=== PATIENT | female | born 1955 | race Caucasian/White ===

== ENCOUNTER 2018-03-26 06:39 | Inpatient (IN) ==
[2018-03-26] MEDS ORDERED: Bupivacaine 0.5% Inj 50 ML MDV Vial ONE (06:44)
[2018-03-26] MEDS ORDERED: Protamine Sulfate Inj 50 MG/5 ML Vial ONE (06:44)
[2018-03-26] MEDS ORDERED: Heparin 10,000 UNITS/10 ML Vial (for IV use) ONE (06:44)
[2018-03-26] MEDS ORDERED: Thrombin Topical Soln 20,000 UNIT Vial TOPICAL ONE ×4 (06:45→12:51)
[2018-03-26] MEDS ORDERED: Heparin/NS PF Inj 500 ML ONE (06:45)
[2018-03-26] MEDS ORDERED: Chlorhexidine Gluconate 2% 1 Pack (2 Cloths) TOPICAL ONE (07:15)
[2018-03-26] MEDS ORDERED: Sodium Chlor 0.9% Inj 500 ML IV.CONT ONE ×2 (07:15→08:04)
[2018-03-26] MEDS ORDERED: Metoprolol Tartrate 25 MG Tablet PO ONE (07:15)
[2018-03-26] MEDS ORDERED: Gabapentin 400 MG Capsule ONE (07:18)
[2018-03-26] MEDS ORDERED: Acetaminophen 325 MG Tablet ONE (07:18)
--- NOTE | 2018-03-26 07:24 | P.HPVS ---
History of Present Illness Chief Complaint: B LE rest pain History of Present Illness: 62 yo female with prior aortic reconstruction for occlusive disease who presents for extra-anatomic bypass for B LE rest pain. No tissue loss, no motor dysfunction. Notes that legs hurt every night. Other than anxiety about surgery, has been feeling well. No changes in her health that would preclude OR. - Inpatient Certification If this patient has been admitted as an Inpatient: I certify that the inpatient services were ordered in accordance with Medicare regulations governing the order. This includes certification that hospital inpatient services are reasonable and necessary and in the case of services not specified as inpatient-only under 42 CFR 419.22(n), that they are appropriately provided as inpatient services in accordance to with the 2-midnight benchmark under 43 CFR 412.3(e) Estimated Total Length of Stay (Days): 5 Plans for Post Hospital Care: Home Review of Systems All other systems reviewed negative except as stated in HPI PMFSH - History History Provided By: Patient - Medical History Medical History: Medical History (Last Reviewed 03/26/18 @ 07:22 by Matthias Robbins MD) Anxiety Back pain Depression Glaucoma History of bronchitis History of tuberculosis Hypertension Joint pain Myocardial infarction Neck pain Pinched nerve Sciatica Wears glasses - Surgical History Surgical History: Surgical History (Last Reviewed 03/26/18 @ 07:22 by Matthias Robbins MD) History of cardiac cath History of heart artery stent - Tobacco History Tobacco Use In Past 30 Days: Yes Smoking Status: Current every day smoker Tobacco Type: Cigarettes - Alcohol History How Often Do You Have a Drink Containing Alcohol: Monthly or less - Substance Use History Substance History: No History of Abuse Medications and Allergies Active Medications: Active Medications Lactated Ringer's (Lr 1000 Ml Inj) 1,000 mls @ 30 mls/hr IV.CONT .Q24H ONE Stop: 03/27/18 07:14 Sodium Chloride (Ns Inj) 500 mls @ 30 mls/hr IV.CONT .[id number] ONE Stop: 03/26/18 23:54 Allergies Allergy/AdvReac Type Severity Reaction Status Date / Time atorvastatin [From Lipitor] Allergy Severe LEG CRAMPS Verified 03/26/18 07:21 isosorbide Allergy Severe Chest Pain Verified 03/26/18 07:21 levofloxacin Allergy Severe RASH Verified 03/26/18 07:21 nitrous oxide Allergy Severe Anaphylaxis Verified 03/22/18 13:50 penicillin G Allergy Severe Anaphylaxis Verified 03/26/18 07:21 red dye Allergy Severe Edema, Verified 03/22/18 13:50 Localized clopidogrel [From Plavix] AdvReac Severe DOES NOT Verified 03/22/18 13:50 WORK PER PATIENT Home Medications Medication Instructions Recorded Confirmed Type Lacto.acidophilus-Bif.animalis 1 cap PO DAILY 03/19/18 03/22/18 History [Daily Probiotic] alprazolam 0.25 mg PO TID PRN 03/19/18 03/22/18 History cholecalciferol (vitamin D3) 1,000 unit PO DAILY 03/19/18 03/22/18 History [Vitamin D3] duloxetine 30 mg PO DAILY 03/19/18 03/22/18 History gabapentin 300 mg PO BID 03/19/18 03/22/18 History metoprolol tartrate 25 mg PO BID 03/19/18 03/22/18 History prasugrel [Effient] 10 mg PO DAILY 03/19/18 03/22/18 History Physical Exam Vital Signs / I&O: Intake & Output 03/25/18 03/26/18 03/26/18 18:59 06:59 18:59 Weight 52.3 kg Neuro: alert, [place], slightly anxious HEENT: NC/AT; anicteric Neck: no JVD Heart: reg rate Lungs: clear Abdomen: midline incision healed Vascular: no palpable femoral, pedal pulses Extremities: B groins without erythema Hct 46 plt 280 INR 1.0 cr 0.85 Caprini VTE Risk Assessment Caprini VTE Risk Assessment: No/Low Risk (score <= 1) (intraop heparin) Caprini Risk Assessment Model: Point Value = 1 Point Value = 2 Point Value = 3 Point Value = 5 Age 41-60 Minor surgery BMI > 25 kg/m2 Swollen legs Varicose veins or History of unexplained or recurrent spontaneous Oral contraceptives or hormone replacement Sepsis (< 1 month) Serious lung disease, including pneumonia (< 1 month) Abnormal pulmonary function Acute myocardial infarction Congestive heart failure (< 1 month) History of inflammatory bowel disease Medical patient at bed rest Age 61-74 Arthroscopic surgery Major open surgery (> 45 min) Laparoscopic surgery (> 45 min) Malignancy Confined to bed (> 72 hours) Immobilizing plaster cast Central venous access Age >= 75 History of VTE Family history of VTE Factor V Leiden Prothrombin [id number] Lupus anticoagulant Anticardiolipin antibodies Elevated serum homocysteine Heparin-induced thrombocytopenia Other congenital or acquired thrombophilia Stroke (< 1 month) Elective arthroplasty Hip, pelvis, or leg fracture Acute spinal cord injury (< 1 month) Prophylaxis Regimen: Total Risk Factor Score Risk Level Prophylaxis Regimen 0-1 Low Early ambulation 2 Moderate Order ONE of the following: *Sequential Compression Device (SCD) *Heparin 5000 units SQ BID 3-4 Higher Order ONE of the following medications: *Heparin 5000 units SQ TID *Enoxaparin/Lovenox 40 mg SQ daily (WT < 150 kg, CrCl > 30 mL/min) *Enoxaparin/Lovenox 30 mg SQ daily (WT < 150 kg, CrCl > 10-29 mL/min) *Enoxaparin/Lovenox 30 mg SQ BID (WT < 150 kg, CrCl > 30 mL/min) AND/OR *Sequential Compression Device (SCD) 5 or more Highest Order ONE of the following medications: *Heparin 5000 units SQ TID (Preferred with Epidurals) *Enoxaparin/Lovenox 40 mg SQ daily (WT < 150 kg, CrCl > 30 mL/min) *Enoxaparin/Lovenox 30 mg SQ daily (WT < 150 kg, CrCl > 10-29 mL/min) *Enoxaparin/Lovenox 30 mg SQ BID (WT < 150 kg, CrCl > 30 mL/min) AND *Sequential Compression Device (SCD) Assessment and Plan - Assessment (1) Terminal aortic occlusion Code(s): I74.09 - Other arterial embolism and thrombosis of abdominal aorta Status: Acute - Plan plan for R ax-fem-fem pt understands risks of surgery To OR.
[2018-03-26] MEDS ORDERED: Glycopyrrolate Inj 1 MG/5 ML Syringe IV.PUSH ONE (08:04)
[2018-03-26] MEDS ORDERED: Phenylephrine/NS 1000 MCG/10ML Syringe IV.PUSH ONE (08:04)
[2018-03-26] MEDS ORDERED: Normosol-R pH 7.4 Inj 4,000 ML IV.CONT ONE (08:04)
[2018-03-26] MEDS ORDERED: Sodium Chlor 0.9% Inj 250 ML IV.CONT ONE (08:04)
[2018-03-26] MEDS ORDERED: Neostigmine Inj 5 MG/5 ML Syringe IV.PUSH ONE (08:04)
[2018-03-26] MEDS ORDERED: Lidocaine PF 1% Inj 5 ML Syringe OTHER ONE (08:04)
[2018-03-26 12:36] LABS: Hematocrit 27.8 % (35.0-46.0); Hemoglobin 9.5 gm/dL (11.6-15.3); Mean Corpuscular HGB Conc 34.3 % (32.0-36.0); Mean Corpuscular Hemoglobin 31.5 pg (27.0-34.0); Mean Corpuscular Volume 91.9 fL (80.0-100.0); Mean Platelet Volume 8.8 fL (7.0-11.0); Platelet Count 248 th/mm3 (150-450); Red Blood Count 3.02 mil/mm3 (4.00-5.30); Red Cell Distribution Width 14.4 % (11.6-17.2); White Blood Count 11.1 th/mm3 (4.0-11.0)
[2018-03-26] MEDS ORDERED: Bisacodyl 10 MG Supp RECTAL PRN (13:34)
--- NOTE | 2018-03-26 13:34 | P.OP ---
- Preoperative Diagnosis (1) Terminal aortic occlusion - Postoperative Diagnosis (1) Terminal aortic occlusion Date of procedure: 03/26/18 Procedure: 1. R ax-fem, fem-fem (8mm PTFE) 2. R PFA TEA with bovine pericardial patch angioplasty 3. L PFA TEA with bovine pericardial patch angioplasty 4. R fem-BK pop with 6mm PTFE Implants: 8mm PTFE ax-fem-fem 6mm PTFE R fem-BK pop bovine pericardial patches x 2 B groins Anesthesia: GETA Surgeon: Matthias Robbins MD Anime Artist: Matthias Guillen Estimated blood loss (mL): 700 IV fluids (mL): 4,200 Urine output (mL): 400 Pathology: none sent Operation and Findings: severe PAD + R PT and DP signals + L DP signal
[2018-03-26] MEDS ORDERED: fentaNYL Citrate Inj 100 MCG/2 ML Ampul ONE (14:02)
[2018-03-26] MEDS: Morphine Inj 4 MG/ML Vial IV.PUSH PRN ×4 (14:17→20:43)
[2018-03-26 14:54] LABS: Hematocrit 28.3 % (35.0-46.0); Hemoglobin 10.1 gm/dL (11.6-15.3); Mean Corpuscular HGB Conc 35.7 % (32.0-36.0); Mean Corpuscular Hemoglobin 33.3 pg (27.0-34.0); Mean Corpuscular Volume 93.4 fL (80.0-100.0); Mean Platelet Volume 8.8 fL (7.0-11.0); Platelet Count 250 th/mm3 (150-450); Red Blood Count 3.03 mil/mm3 (4.00-5.30); Red Cell Distribution Width 14.5 % (11.6-17.2); White Blood Count 17.4 th/mm3 (4.0-11.0)
[2018-03-26] MEDS ORDERED: Phenylephrine Inj 40 MG in Dextrose 5% in Water Inj 496 ML IV.CONT PRN ×2 (15:00)
--- NOTE | 2018-03-26 15:23 | MP ---
cc: Matthias Robbins MD DATE OF OPERATION: 03/26/2018 PREOPERATIVE DIAGNOSIS: Terminal aortic occlusion, bilateral lower extremity rest pain. POSTOPERATIVE DIAGNOSIS: Terminal aortic occlusion, bilateral lower extremity rest pain. PROCEDURE PERFORMED: 1. Right axillary-femoral and femoral-femoral bypass with 8 mm ringed PTFE. 2. Right profunda endarterectomy and patch angioplasty with bovine pericardium. 3. Left profunda endarterectomy and patch angioplasty with bovine pericardium. 4. Right femoral to below-knee popliteal artery bypass with 6 mm PTFE. ATTENDING SURGEON: Matthias Robbins MD. ANESTHESIA: General. INDICATIONS FOR PROCEDURE: This patient is a 62-year-old lady with terminal aortic occlusion and previous open aortic procedure. She was taken to the operating room for extra-anatomic bypasses, as I do not think she is a candidate for a thoraco-bifemoral due to her underlying pulmonary dysfunction. DESCRIPTION OF PROCEDURE: Informed consent was obtained. The patient was taken to the operating room and placed supine on the operating table. An appropriate timeout was taken to ensure the patient's identity, the operative site and planned procedure. A gram of vancomycin was initiated prior to skin incision and will be discontinued after single preoperative dose. Vancomycin was chosen because of the patient's PENICILLIN ALLERGY. Everyone in the room agreed and we proceeded. She was prepped from the chin to the toes. An incision was made in both the patient's groins and carried down through subcutaneous tissue with electrocautery. The femoral artery, superficial femoral artery and profunda femoris were all dissected free. On the right hand side, the profunda femoris was about 2 mm in diameter. A right subclavicular incision was then made, carried down through subcutaneous tissue with electrocautery. The pectoralis major muscles were divided and the pectoralis minor muscles were retracted laterally. The axillary artery was identified and encircled with a vessel loop. A tunnel was then created between the axillary incision and the right groin incision with a counter incision being made. An 8 mm ringed PTFE was placed through this and the counter incision was closed with 3-0 Polysorb and 4-0 Monocryl. A tunnel was then created in the subfascial plane between the 2 femoral exposure sites and an 8 mm ringed PTFE was placed through this. The patient was then heparinized and throughout the remainder of the case, ACT was kept greater than 250 with additional bolus of heparin. Proximal and distal control of axillary artery was obtained with profunda clamps and a longitudinal arteriotomy was made with an 11 blade, extended with [place] scissors. The 8 mm ringed PTFE was spatulated and sewn end-to-side to the axillary artery with running 5-0 Prolene suture. At completion, it was flushed and noted to be hemostatic. A [place] Sof-Rol was placed on this in the groin. The common femoral, profunda, and SFA were all clamped and a longitudinal arteriotomy was made with an 11 blade, extended with [place] scissors. The profunda was endarterectomized. A bovine pericardial patch was brought up onto the field and sewn on starting from the common femoral including the profunda and this was sewn on with running 6-0 Prolene suture. The patch was then incised with an 11 blade, extended with [place] scissors. The axillofemoral graft was cut to the appropriate length, spatulated, and sewn end-to-side to the patch with running 5-0 Prolene suture. At the completion, it was flushed and noted to be hemostatic. There was nice Doppler signal in the profunda. The clamp was then reapplied and the graft was opened longitudinally. An 8 mm fem-fem was then sewn end-to-side with running 5-0 Prolene. On the left hand side, common femoral, profunda and SFA control were obtained with profunda clamps and a longitudinal arteriotomy was then made with an 11 blade and extended with [place] scissors. The profunda and common femoral artery were endarterectomized and bovine pericardial patch was sewn upon sewn on the common femoral and profunda using running 6-0 Prolene suture. The patch was incised with an 11 blade, extended with [place] scissors. The fem-fem was cut to an appropriate length, spatulated, and sewn end-to-side to the patch with running 5-0 Prolene suture. The patient was felt to be hemostatic. All the clamps were released. There was nice Doppler signal in both profundus. No Doppler signal in the right foot and a reasonable Doppler signal in the left foot. An incision was made in the right below-knee calf, carried down through subcutaneous tissue with electrocautery. The muscle was divided and retracted posteriorly. The popliteal vein was identified and retracted posteriorly and the below-knee popliteal artery was identified, encircled with vessel loop. A tunnel was then created between these two and 6 mm PTFE was placed in the tunnel. The proximal control of the ax-fem was obtained with profunda clamps and a longitudinal arteriotomy was made with an 11 blade, extended with [place] scissors. A 6 mm tunneled to femoral-BK pop bypass was sewn end-to-side with running 5-0 Prolene suture. At the completion, it was flushed and noted to be hemostatic. The below-knee popliteal artery was clamped proximally and distally with profunda clamps and the longitudinal arteriotomy was made with 11 blade, extended with [place] scissors. The graft was cut to appropriate length, spatulated, and sewn end-to-side to the below-knee popliteal artery with running 6-0 Prolene suture. At the completion, it was flushed and noted to be hemostatic. There was an excellent Doppler signal in the right foot. The wounds were all irrigated and made hemostatic. The heparin was reversed with protamine. The wounds were infiltrated with Marcaine, vancomycin powder. The wounds were all closed with 2-0 Polysorb, 3-0 Polysorb and 4-0 Monocryl. Sponge and needle counts were correct at the end of the case. I was present, scrubbed, and performed the entire procedure. MD CODEY Daniels/werner , 02:46 PM , 03:00 PM
[2018-03-26 15:29] LABS: Anion Gap 9 meq/L (5-15); Blood Urea Nitrogen 11 mg/dL (7-18); Calcium 6.6 mg/dL (8.5-10.1); Carbon Dioxide 26.2 meq/L (21.0-32.0); Chloride 108 meq/L (98-107); Glomerular Filtration Rate Greater Than 89 mL/min (>89); Glucose,Random 159 mg/dL (74-106); Potassium 3.9 meq/L (3.5-5.1); Sodium 143 meq/L (136-145)
[2018-03-26 15:50] LABS: Albumin 2.5 g/dL (3.4-5.0); Calcium-Albumin Corrected 7.8 mg/dL (8.5-10.1)
--- NOTE | 2018-03-26 16:15 | P.CONCC ---
History of Present Illness Service: CVICU Consult date: 03/26/18 Requesting Physician: Matthias Robbisn Reason for Consult: Post-operative care s/p extensive vascular bypasses Primary Care Provider: Keo Kim DO Chief Complaint: None History of Present Illness: 62yF with PVD, lower extremity claudication, and rest pain who was brought to CVICU POD #0 s/p right axillary-femoral and femoral-femoral bypass with PTFE graft, bilateral profunda endarterectomies and patch angioplasty with bovine pericardium, and right femoral to below knee popliteal artery bypass with PTFE graft. The patient had an EBL of 700 cc intra-operatively, was successfully extubated following the procedure, and arrived to CVICU in no acute distress. Her only current complaint is feeling a foreign body sensation in her left eye. Denies abdominal pain, back pain, or lower extremity numbness/ pain. Review of Systems All other systems reviewed negative except as stated in HPI Constitutional: Denies fever(s) Eyes: Reports dry eyes Ears, Nose, Mouth, and Throat: Denies nasal congestion Cardiovascular: Denies chest pain Respiratory: Denies cough Gastrointestinal: Denies abdominal pain Genitourinary: Denies painful urination Musculoskeletal: Denies back pain Neurologic: Denies confusion Psychiatric: Denies confusion PMFSH - History History Provided By: Patient - Medical History Medical History: Medical History (Last Reviewed 03/26/18 @ 15:11 by Alanna Jett DO) Anxiety Back pain Depression Glaucoma History of bronchitis History of tuberculosis Hypertension Joint pain Myocardial infarction Neck pain Pinched nerve Sciatica Wears glasses - Surgical History Surgical History: Surgical History (Last Reviewed 03/26/18 @ 15:11 by Alanna Jett DO) History of cardiac cath History of heart artery stent - Social History I have reviewed the patient's Social History: Yes - Tobacco History Second Hand Smoke Exposure: Yes Tobacco Use In Past 30 Days: Yes Smoking Status: Current every day smoker Tobacco Type: Cigarettes - Alcohol History How Often Do You Have a Drink Containing Alcohol: Monthly or less - Substance Use History Substance History: No History of Abuse - Travel History Recent Travel in the [place] Within the Last 8 Weeks: No Recent Travel Out of the Country Within the Last 8 Weeks: No Medications and Allergies Active Medications: Active Medications Al Hydroxide/Mg Hydroxide (Milk Of Magnesia Liq) 30 ml PO Q12H PRN PRN Reason: Mild Constipation Alprazolam (Xanax) 0.25 mg PO TID PRN PRN Reason: Anxiety Artificial Tears (Tears Naturale Opth Drops) 1 drop EACH EYE Q4H PRN PRN Reason: EYE PAIN Aspirin (Aspirin Chew) 81 mg PO DAILY [facility] Bisacodyl (Dulcolax Supp) 10 mg RECTAL DAILY PRN PRN Reason: SEVERE CONSITIPATION Clopidogrel Bisulfate (Plavix) 75 mg PO DAILY [facility] Duloxetine HCl (Cymbalta) 30 mg PO DAILY [facility] Enoxaparin Sodium (Lovenox Inj) 30 mg SQ Q24H [facility] Famotidine (Pepcid) 20 mg PO BID [facility] Gabapentin (Neurontin) 300 mg PO BID [facility] Hydromorphone HCl (Dilaudid) 2 mg PO Q4H PRN PRN Reason: PAIN SCALE 6 TO 10 Hydroxyzine HCl (Atarax) 25 mg PO Q8H PRN PRN Reason: ITCHING Lactated Ringer's (Lr 1000 Ml Inj) 1,000 mls @ 30 mls/hr IV.CONT .Q24H ONE Stop: 03/27/18 07:14 Last Admin: 03/26/18 07:31 Dose: 30 mls/hr Sodium Chloride (Ns Inj) 500 mls @ 30 mls/hr IV.CONT .[id number] ONE Stop: 03/26/18 23:54 Last Admin: 03/26/18 07:31 Dose: Not Given Lactated Ringer's (Lr 1000 Ml Inj) 1,000 mls @ 63 mls/hr IV.CONT .[id number] [facility] Last Admin: 03/26/18 14:50 Dose: 63 mls/hr Phenylephrine HCl 40 mg/ (Dextrose) 500 mls @ 26.25 mls/hr IV.CONT TITRATE PRN ; Protocol PRN Reason: Per Protocol Lactobacillus Acidophilus (Lactinex) 1 tab PO DAILY [facility] Lactulose (Lactulose Liq) 30 ml PO DAILY PRN PRN Reason: SEVERE CONSITIPATION Metoprolol Tartrate (Lopressor) 25 mg PO BID [facility] Morphine Sulfate (Morphine Inj) 2 mg IV.PUSH Q1H PRN PRN Reason: BREAKTHROUGH PAIN Last Admin: 03/26/18 14:17 Dose: 2 mg Oxycodone HCl (Roxicodone) 5 mg PO Q4H PRN PRN Reason: PAIN SCALE 1 TO 5 Senna/Docusate Sodium (Lissette-Colace) 1 tab PO BID [facility] Sennosides (Senokot) 17.2 mg PO Q12H PRN PRN Reason: Moderate Constipation Terbutaline Sulfate (Brethine Inj) 1 mg SQ UNSCH PRN PRN Reason: For Extravasation Vitamin D (Vitamin D3) 1,000 unit PO DAILY [facility] Allergies Allergy/AdvReac Type Severity Reaction Status Date / Time atorvastatin [From Lipitor] Allergy Severe LEG CRAMPS Verified 03/26/18 07:21 isosorbide Allergy Severe Chest Pain Verified 03/26/18 07:21 levofloxacin Allergy Severe RASH Verified 03/26/18 07:21 nitrous oxide Allergy Severe Anaphylaxis Verified 03/22/18 13:50 penicillin G Allergy Severe Anaphylaxis Verified 03/26/18 07:21 red dye Allergy Severe Edema, Verified 03/22/18 13:50 Localized clopidogrel [From Plavix] AdvReac Severe DOES NOT Verified 03/22/18 13:50 WORK PER PATIENT Home Medications Medication Instructions Recorded Confirmed Type Lacto.acidophilus-Bif.animalis 1 cap PO DAILY 03/19/18 03/26/18 History [Daily Probiotic] alprazolam 0.25 mg PO TID PRN 03/19/18 03/26/18 History cholecalciferol (vitamin D3) 1,000 unit PO DAILY 03/19/18 03/26/18 History [Vitamin D3] duloxetine 30 mg PO DAILY 03/19/18 03/26/18 History gabapentin 300 mg PO BID 03/19/18 03/26/18 History metoprolol tartrate 25 mg PO BID 03/19/18 03/26/18 History prasugrel [Effient] 10 mg PO DAILY 03/19/18 03/26/18 History Physical Exam Vital signs: Vital Signs 03/26/18 07:24 Temperature 97.4 F L Pulse Rate 59 L Respiratory Rate 20 Blood Pressure 191/76 H Pulse Oximetry 100 Intake & Output 03/25/18 03/26/18 03/26/18 18:59 06:59 18:59 Weight 52.3 kg Other: Weight On Admission 52.3 kg Narrative: GEN: Awake and alert, no acute distress HEENT: PERRL, no conjunctival injection or ocular discharge, eyelids everted and no foreign bodies noted, mild chemosis NECK: Trachea midline CARDIO: Regular rate and rhythm PULM: Clear to auscultation bilaterally ABD/GI: Soft, non-tender in all quadrants EXT/MSK: No palpable foot pulses bilaterally; strong monophasic Doppler signals to right DP and PT, no Doppler signals to left DP/PT (RN reports this was also the case pre-operatively), sensation intact to bilateral lower extremities, able to move all digits SKIN: Warm, pink; wound vac present to bilateral groins, incisions to right upper and mid chest are clean and dry NEURO: Awake and alert, conversant, answers questions appropriately, moves all extremities PSYCH: Calm, no current agitation - Urinary Catheter Management Indwelling Temp Sensing Catheter Cath placed during this visit: yes Reason for continuing: Hourly intake/output Insertion date: 03/26/18 Insertion time: 08:20 Assessment and Plan - Assessment and Plan Plan: 62yF presenting s/p right axillary-femoral and femoral-femoral bypass, bilateral profunda endarterectomies and bovine patch angioplasty, and right femoral to below knee popliteal artery bypass NEURO: History of anxiety -Continue home doses of gabapentin and alprazolam -Pain scale with oxycodone/ morphine/ dilaudid PRN HEENT: Foreign body sensation to left eye, suspected corneal abrasion -I do not have fluorescein or Wood's lamp readily available to look for corneal abrasion but symptoms are consistent with one; will treat empirically with gentamicin ophth drops x 5 days total CARDIO: History of essential hypertension History of peripheral vascular disease Hypotension -Mild hypotension noted immediately post-op, likely related to anesthesia/ peripheral vasodilation, now on 30 mcg/min of phenylephrine with MAP in 80s, rapidly wean off -Continue home metoprolol -Daily ASA -Hold home effient for now -Unable to give plavix as patient has a documented allergy RESP: Tobacco use disorder -Incentive spirometry -Smoking cessation encouraged -Nicotine patch F/E/N: -Cardiac diet -Bowel regimen -Currently on NS @ 63 mL/hr, will d/c these in AM if patient is tolerating adequate PO intake HEME: -Hemoglobin pre-op and post-op stable, EBL 700 cc -Recheck H/H in AM VASCULAR: History of peripheral vascular disease -Frequent neurovascular checks -Local wound care PROPHY: -PPI -SCDs, lovenox Thank you for this interesting consult. Our team will follow along while the patient remains in the CVICU. Level 3 consult Code Status: Full
[2018-03-26] MEDS: Artificial Tears Opth Drops 15 ML Bottle EACH EYE PRN (16:51)
[2018-03-26] MEDS: Famotidine 20 MG Tablet PO SCH (20:39)
[2018-03-26] MEDS: Gabapentin 300 MG Capsule PO SCH (20:39)
[2018-03-26] MEDS: Metoprolol Tartrate 25 MG Tablet PO SCH (20:39)
[2018-03-26] MEDS: Gentamicin 0.3% Opth Drops 5 ML Bottle LEFT EYE SCH (20:39)
[2018-03-26] MEDS: Senna/Docusate Sodium 8.6/50 MG Tablet PO SCH (20:39)
[2018-03-27] MEDS: Gentamicin 0.3% Opth Drops 5 ML Bottle LEFT EYE SCH ×6 (00:22→21:17)
[2018-03-27 04:26] LABS: Hematocrit 22.8 % (35.0-46.0); Hemoglobin 7.8 gm/dL (11.6-15.3); Mean Corpuscular HGB Conc 34.3 % (32.0-36.0); Mean Corpuscular Volume 93.1 fL (80.0-100.0); Platelet Count 193 th/mm3 (150-450); Red Blood Count 2.45 mil/mm3 (4.00-5.30); Red Cell Distribution Width 14.6 % (11.6-17.2); White Blood Count 12.3 th/mm3 (4.0-11.0)
[2018-03-27 04:46] LABS: Calcium 6.7 mg/dL (8.5-10.1); Potassium 4.2 meq/L (3.5-5.1)
[2018-03-27 04:54] LABS: Albumin 2.5 g/dL (3.4-5.0); Calcium-Albumin Corrected 7.9 mg/dL (8.5-10.1)
[2018-03-27] MEDS: ALPRAZolam 0.25 MG Tablet PO PRN (05:21)
--- NOTE | 2018-03-27 07:48 | P.PNVS ---
Subjective Post Op Day #: 1 Procedure: R ax-fem-fem, B groin reconstruction, R fem-bK pop Subjective/Hospital Course: feels fatigued feel feel better already no motor dysfunction UOP marginal overnight Objective Vital Signs / I&O: Vital Signs 03/26/18 13:50 03/26/18 16:00 03/26/18 16:12 Temperature 97.5 F L 97.4 F L Pulse Rate 53 L 55 L Respiratory Rate 16 18 Blood Pressure 156/59 H Pulse Oximetry 99 100 100 03/26/18 16:25 03/26/18 20:00 03/26/18 20:30 Temperature 98.4 F Pulse Rate 55 L Respiratory Rate 18 Blood Pressure 90/45 L Pulse Oximetry 98 99 88 L 03/26/18 21:00 03/26/18 21:06 03/27/18 00:00 Temperature 98.2 F Pulse Rate 55 L Respiratory Rate 18 Blood Pressure Pulse Oximetry 97 97 100 03/27/18 04:00 03/27/18 06:12 03/27/18 06:30 Temperature 98.4 F 97.5 F L 97.8 F Pulse Rate 73 56 L 61 Respiratory Rate 18 18 18 Blood Pressure 107/48 L 101/51 L 92/44 L Pulse Oximetry 96 99 96 03/27/18 06:45 Temperature Pulse Rate 79 Respiratory Rate Blood Pressure 114/50 L Pulse Oximetry Intake & Output 03/26/18 03/27/18 03/27/18 18:59 06:59 18:59 Intake Total 4540 / 4540 720 / 720 Output Total 1250 / 1250 380 / 380 Balance 3290 / 3290 340 / 340 Weight 52.3 kg 57 kg Intake: Oral 240 / 240 720 / 720 Anesthesia Amount 4300 / 4300 Intake (Blood Product) Amt 0 / 0 Rbc As-3 Leukoreduced Unit 0 / 0 [id number] Output: Estimated Blood Loss 700 / 700 Urine Amount (Catheter) 550 / 550 380 / 380 Indwelling Temp Sensing 550 / 550 380 / 380 Catheter Other: # Bowel Movements 0 Weight On Admission 52.3 kg Exam: resting comfortably R axillary incision ok R groin soft with Prevnea in place palpable R DP warm L foot Laboratory Results - last 24 hr 03/26/18 03/26/18 03/26/18 07:32 09:19 12:15 WBC 11.1 H RBC 3.02 L Hgb 9.5 L Hct 27.8 L MCV 91.9 MCH 31.5 MCHC 34.3 RDW 14.4 Plt Count 248 MPV 8.8 Sodium Potassium Chloride Carbon Dioxide Anion Gap BUN Creatinine Estimated GFR Random Glucose Calcium Calcium Adj for Albumin Albumin Blood Type A Positive Blood Type Recheck Required Antibody Screen Negative MTS Gel Crossmatch See Detail 03/26/18 03/26/18 03/27/18 14:30 14:30 04:00 WBC 17.4 H D 12.3 H RBC 3.03 L 2.45 L Hgb 10.1 L 7.8 L D Hct 28.3 L 22.8 L MCV 93.4 93.1 MCH 33.3 32.0 MCHC 35.7 34.3 RDW 14.5 14.6 Plt Count 250 193 MPV 8.8 9.0 Sodium 143 Potassium 3.9 Chloride 108 H Carbon Dioxide 26.2 Anion Gap 9 BUN 11 Creatinine 0.61 Estimated GFR Greater than 89 Random Glucose 159 H Calcium 6.6 L* Calcium Adj for Albumin 7.8 L Albumin 2.5 L Blood Type Blood Type Recheck Antibody Screen MTS Gel Crossmatch 03/27/18 04:00 WBC RBC Hgb Hct MCV MCH MCHC RDW Plt Count MPV Sodium 140 Potassium 4.2 Chloride 107 Carbon Dioxide 25.0 Anion Gap 8 BUN 13 Creatinine 0.80 Estimated GFR 72 L Random Glucose 134 H Calcium 6.7 L* Calcium Adj for Albumin 7.9 L Albumin 2.5 L Blood Type Blood Type Recheck Antibody Screen MTS Gel Crossmatch Assessment and Plan - Assessment (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 OOB TC today; PT consulted 2. Aragon out 3. Transfuse PRBC today 4. Transition from ICU tomorrow Discharge Planning: likely 4-5 days
[2018-03-27] MEDS: Senna/Docusate Sodium 8.6/50 MG Tablet PO SCH ×2 (08:29→21:17)
[2018-03-27] MEDS: Gabapentin 300 MG Capsule PO SCH ×2 (08:29→21:17)
[2018-03-27] MEDS: Famotidine 20 MG Tablet PO SCH ×2 (08:30→21:17)
[2018-03-27] MEDS: Lactobacillus Acidophilus/L. Spores Tablet PO SCH (08:30)
[2018-03-27] MEDS: Metoprolol Tartrate 25 MG Tablet PO SCH (08:31)
--- NOTE | 2018-03-27 12:16 | P.PNCC ---
Subjective Subjective Remarks/Hospital Course: 62yF with PVD, lower extremity claudication, and rest pain who was brought to CVICU POD #0 s/p right axillary-femoral and femoral-femoral bypass with PTFE graft, bilateral profunda endarterectomies and patch angioplasty with bovine pericardium, and right femoral to below knee popliteal artery bypass with PTFE graft. The patient had an EBL of 700 cc intra-operatively, was successfully extubated following the procedure, and arrived to CVICU in no acute distress. Her only current complaint is feeling a foreign body sensation in her left eye. Denies abdominal pain, back pain, or lower extremity numbness/ pain. 03/27: No events overnight, receiving a unit of PRBCs this morning for downtrending hemoglobin. Reports mild "aching" pain to right calf but no numbness or tingling. Reports that her left eye pain is improved. Objective Vital Signs / I&O: Vital Signs 03/26/18 13:50 03/26/18 16:00 03/26/18 16:12 Temperature 97.5 F L 97.4 F L Pulse Rate 53 L 55 L Respiratory Rate 16 18 Blood Pressure 156/59 H Pulse Oximetry 99 100 100 03/26/18 16:25 03/26/18 20:00 03/26/18 20:30 Temperature 98.4 F Pulse Rate 55 L Respiratory Rate 18 Blood Pressure 90/45 L Pulse Oximetry 98 99 88 L 03/26/18 21:00 03/26/18 21:06 03/27/18 00:00 Temperature 98.2 F Pulse Rate 55 L Respiratory Rate 18 Blood Pressure Pulse Oximetry 97 97 100 03/27/18 04:00 03/27/18 06:12 03/27/18 06:30 Temperature 98.4 F 97.5 F L 97.8 F Pulse Rate 73 56 L 61 Respiratory Rate 18 18 18 Blood Pressure 107/48 L 101/51 L 92/44 L Pulse Oximetry 96 99 96 03/27/18 06:45 03/27/18 07:00 03/27/18 09:01 Temperature 97.7 F Pulse Rate 79 61 Respiratory Rate 14 14 Blood Pressure 114/50 L 107/49 L Pulse Oximetry 99 03/27/18 09:31 Temperature Pulse Rate Respiratory Rate Blood Pressure Pulse Oximetry 99 Intake & Output 03/26/18 03/27/1819 18:59 06:59 18:59 Intake Total 4540 / 4540 720 / 720 1400 / 1400 Output Total 1250 / 1250 380 / 380 Balance 3290 / 3290 340 / 340 1400 / 1400 Weight 52.3 kg 57 kg Intake: IV 1000 / 1000 LR 1000 mL Inj 1,000 ML @ 63 1000 / 1000 mls/hr IV.CONT .[id number] Rx# :[id number] Oral 240 / 240 720 / 720 Anesthesia Amount 4300 / 4300 Intake (Blood Product) Amt 0 / 0 400 / 400 Rbc As-3 Leukoreduced Unit 0 / 0 400 / 400 [id number] Output: Estimated Blood Loss 700 / 700 Urine Amount (Catheter) 550 / 550 380 / 380 Indwelling Temp Sensing 550 / 550 380 / 380 Catheter Other: # Bowel Movements 0 Weight On Admission 52.3 kg Result Diagrams: 03/27/18 04:00 03/27/18 04:00 Objective Remarks: GEN: Awake and alert, sitting up in chair HEENT: PERRL, no conjunctival injection or ocular discharge, no blepharitis NECK: Trachea midline CARDIO: Regular rate and rhythm PULM: Clear to auscultation bilaterally ABD/GI: Soft, non-tender in all quadrants EXT/MSK: Knee-high compression stockings on bilaterally, right lower extremity is warm and well-perfused, no calf tenderness; left lower extremity is cool but not cold SKIN: Warm, pink; wound vac present to bilateral groins, incisions to right upper and mid chest are clean and dry NEURO: Awake and alert, conversant, answers questions appropriately, moves all extremities PSYCH: Calm, appropriate affect Assessment and Plan - Assessment and Plan Plan: 62yF presenting s/p right axillary-femoral and femoral-femoral bypass, bilateral profunda endarterectomies and bovine patch angioplasty, and right femoral to below knee popliteal artery bypass NEURO: History of anxiety -Continue home doses of gabapentin and alprazolam -Pain scale with oxycodone/ morphine/ dilaudid PRN HEENT: Foreign body sensation to left eye, suspected corneal abrasion -Treat empirically with gentamicin ophth drops x 5 days total CARDIO: History of essential hypertension History of peripheral vascular disease Hypotension- resolved -Continue home metoprolol -Daily ASA -Hold home effient for now -Unable to give plavix as patient has a documented allergy RESP: Tobacco use disorder -Incentive spirometry -Smoking cessation encouraged -Nicotine patch F/E/N: -Cardiac diet -Bowel regimen -D/C IV fluids HEME: Acute blood loss anemia -EBL 700 cc -Hg 10.1 post-op, 7.8 this morning, no signs of active bleeding and 2L net positive over the past 24 hours * Given 1U PRBCs today * Recheck H/H tomorrow AM VASCULAR: History of peripheral vascular disease -Frequent neurovascular checks -Local wound care PROPHY: -PPI -SCDs, lovenox OVERALL: This patient remains stable but requires continued ICU level of care due to acute blood loss anemia requiring transfusions and need for frequent neurovascular checks Level 2 follow up To help prompt me to consider important information that might be impacting today's encounter and assessment, information from prior notes written by myself or my colleagues may have been "brought forward" into today's note. My signature on this note, however, is an attestation that I personally performed the exam, history, and/or decision-making noted today, and, unless otherwise indicated, the interactions with patient, family, and staff as well as the review of records all occurred today. I also attest that the listed assessment and stated plan reflect my best clinical judgment today based on the combination of historical information, prior notes, and today's exam/ interactions. Code Status: Full
[2018-03-27] MEDS: Enoxaparin Inj 30 MG/0.3 ML Syringe SQ SCH (12:50)
[2018-03-27] MEDS: Artificial Tears Opth Drops 15 ML Bottle EACH EYE PRN (12:51)
[2018-03-28] MEDS: Metoprolol Tartrate 25 MG Tablet PO SCH ×3 (00:49→20:52)
[2018-03-28] MEDS: Gentamicin 0.3% Opth Drops 5 ML Bottle LEFT EYE SCH ×5 (00:50→20:53)
[2018-03-28 04:48] LABS: Hemoglobin 8.5 gm/dL (11.6-15.3); Mean Corpuscular HGB Conc 35.3 % (32.0-36.0); Mean Corpuscular Hemoglobin 32.4 pg (27.0-34.0); Mean Corpuscular Volume 91.7 fL (80.0-100.0); Mean Platelet Volume 9.3 fL (7.0-11.0); Platelet Count 135 th/mm3 (150-450); Red Blood Count 2.62 mil/mm3 (4.00-5.30); Red Cell Distribution Width 14.7 % (11.6-17.2); White Blood Count 10.9 th/mm3 (4.0-11.0)
[2018-03-28 04:57] LABS: Calcium 7.1 mg/dL (8.5-10.1); Carbon Dioxide 24.7 meq/L (21.0-32.0); Potassium 3.8 meq/L (3.5-5.1)
[2018-03-28 05:05] LABS: Albumin 2.4 g/dL (3.4-5.0); Calcium-Albumin Corrected 8.4 mg/dL (8.5-10.1)
--- NOTE | 2018-03-28 08:07 | P.PNVS ---
Subjective Post Op Day #: 2 Procedure: R ax-fem-fem, B groin reconstruction, R fem-bK pop Subjective/Hospital Course: sitting OOB, aubrie diet req i/o cath once but has since voided pain reasonably controlled no more rest pain in either leg motor intact Objective Vital Signs / I&O: Vital Signs 03/27/18 09:01 03/27/18 09:31 03/27/18 11:00 Temperature 98.8 F Pulse Rate 65 Respiratory Rate 14 18 Blood Pressure 119/60 Pulse Oximetry 99 96 03/27/18 15:00 03/27/18 20:00 03/28/18 00:00 Temperature 97.8 F 98.7 F Pulse Rate 82 106 H 94 H Respiratory Rate 18 18 18 Blood Pressure 118/57 L 136/58 L 101/45 L Pulse Oximetry 95 97 96 03/28/18 04:00 Temperature 98.5 F Pulse Rate 89 Respiratory Rate 18 Blood Pressure 114/53 L Pulse Oximetry 97 Intake & Output 03/27/18 03/28/18 03/28/18 18:59 06:59 18:59 Intake Total 2520 / 2520 720 / 720 Output Total 800 / 800 100 / 100 Balance 1720 / 1720 620 / 620 Weight 58 kg Intake: IV 1400 / 1400 LR 1000 mL Inj 1,000 ML @ 63 1400 / 1400 mls/hr IV.CONT .[id number] [facility] Rx# :[id number] Oral 720 / 720 720 / 720 Intake (Blood Product) Amt 400 / 400 Rbc As-3 Leukoreduced Unit 400 / 400 [id number] Output: Urine Amount (Catheter) 800 / 800 100 / 100 Straight 800 / 800 100 / 100 Other: # Bowel Movements 0 Exam: sitting, eating breakfast neuro intact feet warm palpable R LE pulses R calf incision ok R axillary incision slightly full, not tense Laboratory Results - last 24 hr 03/26/18 03/28/18 03/28/18 09:19 03:48 03:48 WBC 10.9 RBC 2.62 L Hgb 8.5 L Hct 24.0 L MCV 91.7 MCH 32.4 MCHC 35.3 RDW 14.7 Plt Count 135 L D MPV 9.3 Sodium 137 Potassium 3.8 Chloride 104 Carbon Dioxide 24.7 Anion Gap 8 BUN 11 Creatinine 0.72 Estimated GFR 82 L Random Glucose 109 H Calcium 7.1 L* Calcium Adj for Albumin 8.4 L Albumin 2.4 L MTS Gel Crossmatch See Detail Assessment and Plan - Assessment (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 OOB and ambulate, PT consulted 2. watch for UOP 3. Transfer to [facility] on telemetry Discharge Planning: likely 2-3 days to rehab
[2018-03-28] MEDS: Gabapentin 300 MG Capsule PO SCH ×2 (09:32→20:51)
[2018-03-28] MEDS: Senna/Docusate Sodium 8.6/50 MG Tablet PO SCH ×2 (09:32→20:52)
[2018-03-28] MEDS: Lactobacillus Acidophilus/L. Spores Tablet PO SCH (09:33)
[2018-03-28] MEDS: Famotidine 20 MG Tablet PO SCH ×2 (09:33→20:52)
[2018-03-28] MEDS: Enoxaparin Inj 30 MG/0.3 ML Syringe SQ SCH (15:13)
[2018-03-29] MEDS: Gentamicin 0.3% Opth Drops 5 ML Bottle LEFT EYE SCH ×8 (03:12→23:58)
--- NOTE | 2018-03-29 07:27 | P.PNVS ---
Subjective Post Op Day #: 3 Procedure: R ax-fem-fem, B groin reconstruction, R fem-bK pop Subjective/Hospital Course: looks amazing no more feet numbness pain controlled ambulated in hallway Objective Vital Signs / I&O: Vital Signs 03/28/18 11:00 03/28/18 13:19 03/28/18 15:00 Temperature 97.8 F 98.6 F Pulse Rate 75 87 Respiratory Rate 18 18 Blood Pressure 106/45 L 125/50 L Pulse Oximetry 96 96 97 03/28/18 19:00 03/28/18 20:03 03/28/18 23:00 Temperature 99.2 F Pulse Rate 77 86 77 Respiratory Rate 16 Blood Pressure 118/57 L Pulse Oximetry 98 03/28/18 23:11 03/29/18 03:00 03/29/18 03:39 Temperature 100.1 F H 97.6 F Pulse Rate 83 77 72 Respiratory Rate 16 16 Blood Pressure 112/52 L 107/50 L Pulse Oximetry 89 L 94 L 03/29/18 03:56 Temperature Pulse Rate Respiratory Rate 16 Blood Pressure Pulse Oximetry Intake & Output 03/28/18 03/29/18 03/29/18 18:59 06:59 18:59 Intake Total 1200 / 1200 480 / 480 Output Total 1050 / 1050 925 / 925 Balance 150 / 150 -445 / -445 Weight 59 kg Intake: Oral 1200 / 1200 480 / 480 Output: Urine 1050 / 1050 925 / 925 Exam: B LE feet warm, motor intact R axillary incision ecchymotic lateral breast ecchymotic B groins soft R BK incision intact Assessment and Plan - Assessment (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 OOB and ambulate, PT consulted 2.normalize 3. d/c planning Discharge Planning: anytime to rehab
[2018-03-29 07:58] LABS: Hematocrit 21.6 % (35.0-46.0); Hemoglobin 7.6 gm/dL (11.6-15.3); Mean Corpuscular HGB Conc 35.2 % (32.0-36.0); Mean Corpuscular Hemoglobin 31.6 pg (27.0-34.0); Mean Corpuscular Volume 89.8 fL (80.0-100.0); Mean Platelet Volume 8.9 fL (7.0-11.0); Platelet Count 134 th/mm3 (150-450); Red Blood Count 2.41 mil/mm3 (4.00-5.30); Red Cell Distribution Width 14.6 % (11.6-17.2); White Blood Count 9.9 th/mm3 (4.0-11.0)
[2018-03-29] MEDS: Gabapentin 300 MG Capsule PO SCH ×2 (08:58→20:26)
[2018-03-29] MEDS: Senna/Docusate Sodium 8.6/50 MG Tablet PO SCH ×2 (08:59→20:27)
[2018-03-29] MEDS: Metoprolol Tartrate 25 MG Tablet PO SCH ×2 (08:59→20:26)
[2018-03-29] MEDS: Lactobacillus Acidophilus/L. Spores Tablet PO SCH (08:59)
[2018-03-29] MEDS: Famotidine 20 MG Tablet PO SCH ×2 (08:59→20:26)
[2018-03-29] MEDS: Enoxaparin Inj 30 MG/0.3 ML Syringe SQ SCH (12:26)
[2018-03-30] MEDS: Gentamicin 0.3% Opth Drops 5 ML Bottle LEFT EYE SCH ×6 (03:22→23:28)
[2018-03-30] MEDS: Senna/Docusate Sodium 8.6/50 MG Tablet PO SCH ×2 (08:20→21:16)
[2018-03-30] MEDS: Metoprolol Tartrate 25 MG Tablet PO SCH ×2 (08:20→21:15)
[2018-03-30] MEDS: Famotidine 20 MG Tablet PO SCH ×2 (08:20→21:16)
[2018-03-30] MEDS: Gabapentin 300 MG Capsule PO SCH ×2 (08:21→21:15)
[2018-03-30] MEDS: Lactobacillus Acidophilus/L. Spores Tablet PO SCH (08:21)
--- NOTE | 2018-03-30 08:56 | P.PNVS ---
Subjective Subjective/Hospital Course: Seen in chair eating direct No complaints Objective Vital Signs / I&O: Vital Signs 03/29/18 09:00 03/29/18 10:00 03/29/18 11:00 Temperature 98.6 F Pulse Rate 78 78 58 L Respiratory Rate 18 Blood Pressure 114/52 L Pulse Oximetry 96 03/29/18 12:00 03/29/18 13:00 03/29/18 14:00 Temperature Pulse Rate 62 64 60 Respiratory Rate Blood Pressure Pulse Oximetry 03/29/18 15:00 03/29/18 16:00 03/29/18 17:00 Temperature 98.9 F Pulse Rate 74 70 72 Respiratory Rate 18 Blood Pressure 112/49 L Pulse Oximetry 96 03/29/18 18:00 03/29/18 19:00 03/29/18 19:55 Temperature 98.8 F Pulse Rate 74 64 67 Respiratory Rate 18 Blood Pressure 99/46 L Pulse Oximetry 98 03/29/18 21:00 03/29/18 21:51 03/29/18 23:00 Temperature 98.8 F Pulse Rate 67 65 71 Respiratory Rate 18 Blood Pressure 129/60 Pulse Oximetry 94 L 03/30/18 00:00 03/30/18 00:52 03/30/18 02:00 Temperature Pulse Rate 67 75 62 Respiratory Rate Blood Pressure Pulse Oximetry 03/30/18 02:54 03/30/18 03:00 03/30/18 04:00 Temperature 98.8 F Pulse Rate 67 63 64 Respiratory Rate 16 Blood Pressure 114/56 L Pulse Oximetry 96 03/30/18 04:52 03/30/18 05:59 03/30/18 07:00 Temperature 98.9 F Pulse Rate 67 67 62 Respiratory Rate 18 Blood Pressure 114/59 L Pulse Oximetry 100 03/30/18 08:00 Temperature Pulse Rate 63 Respiratory Rate Blood Pressure Pulse Oximetry Intake & Output 03/29/18 03/30/18 03/30/18 18:59 06:59 18:59 Intake Total 975 / 975 480 / 480 Output Total 800 / 800 Balance 175 / 175 480 / 480 Weight 59 kg Intake: Oral 975 / 975 480 / 480 Output: Urine 800 / 800 Other: # Voids 1 # Bowel Movements 0 Physical Exam: Left foot with monophasic pedal signals Right foot with multiphasic pedal signals Wounds are clean dry intact. 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 Out of bed/PT 2. DC to rehab when bed available Discharge Planning: anytime to rehab
[2018-03-30] MEDS: Enoxaparin Inj 30 MG/0.3 ML Syringe SQ SCH (12:01)
[2018-03-30] MEDS: Morphine Inj 4 MG/ML Vial IV.PUSH PRN (23:28)
[2018-03-31] MEDS: Gentamicin 0.3% Opth Drops 5 ML Bottle LEFT EYE SCH ×5 (04:51→20:20)
[2018-03-31] MEDS: Senna/Docusate Sodium 8.6/50 MG Tablet PO SCH ×2 (08:05→20:19)
[2018-03-31] MEDS: Metoprolol Tartrate 25 MG Tablet PO SCH ×2 (08:05→20:20)
[2018-03-31] MEDS: Gabapentin 300 MG Capsule PO SCH ×2 (08:06→20:19)
[2018-03-31] MEDS: Lactobacillus Acidophilus/L. Spores Tablet PO SCH (08:06)
[2018-03-31] MEDS: Famotidine 20 MG Tablet PO SCH ×2 (08:06→20:19)
--- NOTE | 2018-03-31 10:59 | P.PNVS ---
Subjective Subjective/Hospital Course: Ambulating with PT this morning Objective Vital Signs / I&O: Vital Signs 03/30/18 11:00 03/30/18 12:00 03/30/18 12:59 Temperature 98.5 F Pulse Rate 61 65 68 Respiratory Rate 18 18 Blood Pressure 122/51 L Pulse Oximetry 98 03/30/18 14:00 03/30/18 15:00 03/30/18 16:00 Temperature 98.4 F Pulse Rate 66 60 64 Respiratory Rate 18 Blood Pressure 121/49 L Pulse Oximetry 98 03/30/18 17:00 03/30/18 17:41 03/30/18 17:42 Temperature Pulse Rate 69 71 Respiratory Rate 18 Blood Pressure Pulse Oximetry 03/30/18 19:00 03/30/18 20:00 03/30/18 21:00 Temperature 98.6 F Pulse Rate 78 68 70 Respiratory Rate 18 Blood Pressure 125/58 L Pulse Oximetry 100 03/30/18 22:00 03/30/18 23:00 03/31/18 00:00 Temperature 98.1 F Pulse Rate 68 67 64 Respiratory Rate 16 Blood Pressure 122/57 L Pulse Oximetry 97 03/31/18 01:00 03/31/18 02:00 03/31/18 03:00 Temperature 97.8 F Pulse Rate 66 62 58 L Respiratory Rate 16 Blood Pressure 109/48 L Pulse Oximetry 100 03/31/18 04:00 03/31/18 05:00 03/31/18 06:00 Temperature Pulse Rate 72 60 60 Respiratory Rate Blood Pressure Pulse Oximetry 03/31/18 07:00 03/31/18 07:28 03/31/18 08:00 Temperature 98.0 F Pulse Rate 59 L 71 Respiratory Rate 18 18 Blood Pressure 133/54 L Pulse Oximetry 99 03/31/18 09:00 03/31/18 10:00 Temperature Pulse Rate 63 65 Respiratory Rate Blood Pressure Pulse Oximetry Intake & Output 03/30/18 03/31/18 03/31/18 18:59 06:59 18:59 Intake Total 925 / 925 480 / 480 Output Total 700 / 700 400 / 400 Balance 225 / 225 80 / 80 Weight 59.5 kg Intake: Oral 925 / 925 480 / 480 Output: Urine 700 / 700 400 / 400 Physical Exam: Bilateral extremities well perfused Wounds clean dry intact Assessment and Plan - Assessment (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
[2018-03-31] MEDS: Enoxaparin Inj 30 MG/0.3 ML Syringe SQ SCH (12:10)
[2018-03-31] MEDS: ALPRAZolam 0.25 MG Tablet PO PRN ×2 (15:16→23:06)
[2018-04-01] MEDS: Senna/Docusate Sodium 8.6/50 MG Tablet PO SCH ×2 (08:36→21:02)
[2018-04-01] MEDS: Metoprolol Tartrate 25 MG Tablet PO SCH ×2 (08:36→21:01)
[2018-04-01] MEDS: Famotidine 20 MG Tablet PO SCH ×2 (08:36→21:01)
[2018-04-01] MEDS: Gabapentin 300 MG Capsule PO SCH ×2 (08:36→21:01)
[2018-04-01] MEDS: Lactobacillus Acidophilus/L. Spores Tablet PO SCH (08:37)
--- NOTE | 2018-04-01 09:37 | P.PNVS ---
Subjective Post Op Day #: 6 Procedure: R ax-fem-fem, B groin reconstruction, R fem-bK pop Subjective/Hospital Course: Pt well this am Pt c/o R LE incisional pain Incisions intact B LE warm w/ motor intact Pt denied claudication or rest pain Objective Vital Signs / I&O: Vital Signs 03/31/18 10:00 03/31/18 11:00 03/31/18 12:00 Temperature 98.3 F Pulse Rate 65 67 69 Respiratory Rate 18 Blood Pressure 113/53 L Pulse Oximetry 100 03/31/18 13:00 03/31/18 14:00 03/31/18 15:00 Temperature 98.3 F Pulse Rate 77 62 62 Respiratory Rate 18 Blood Pressure 113/54 L Pulse Oximetry 98 03/31/18 16:00 03/31/18 17:00 03/31/18 18:00 Temperature Pulse Rate 62 78 80 Respiratory Rate Blood Pressure Pulse Oximetry 03/31/18 18:10 03/31/18 19:00 03/31/18 20:00 Temperature 98.5 F Pulse Rate 74 72 Respiratory Rate 18 18 Blood Pressure 132/57 L Pulse Oximetry 99 03/31/18 21:00 03/31/18 22:00 03/31/18 23:00 Temperature 97.7 F Pulse Rate 74 60 82 Respiratory Rate 18 Blood Pressure 140/60 Pulse Oximetry 98 04/01/18 00:00 04/01/18 01:00 04/01/18 02:00 Temperature Pulse Rate 68 66 66 Respiratory Rate Blood Pressure Pulse Oximetry 04/01/18 03:00 04/01/18 04:00 04/01/18 05:00 Temperature 98.5 F Pulse Rate 73 66 66 Respiratory Rate 18 Blood Pressure 132/60 Pulse Oximetry 98 04/01/18 06:00 04/01/18 07:00 Temperature Pulse Rate 66 66 Respiratory Rate Blood Pressure Pulse Oximetry Intake & Output 03/31/18 04/01/18 04/01/18 18:59 06:59 18:59 Intake Total 925 / 925 240 / 240 Balance 925 / 925 240 / 240 Weight 60.5 kg Intake: Oral 925 / 925 240 / 240 Other: # Voids 4 2 Date of Last Bowel Movement 03/31/18 04/01/18 # Bowel Movements 1 1 Exam: GENERAL: Afebrile/A&OX3/NAD SKIN: Warm and dry/Incision to chest (anterior)/R chest (Lateral)/R LE intact w/ o R/D/S Prevena wound vacs to B groins intact w/o swelling or hematoma NECK: Supple, trachea midline. No JVD or lymphadenopathy. CARDIOVASCULAR: Regular rate and rhythm without murmurs, gallops, or rubs. RESPIRATORY: Breath sounds equal bilaterally. No accessory muscle use. GASTROINTESTINAL: Abdomen soft, non-tender, nondistended. 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
--- NOTE | 2018-04-01 09:49 | P.DS ---
Discharge Summary - Admission Date 03/26/18 06:39 - Admission Diagnosis (1) Terminal aortic occlusion - Discharge Date 04/01/18 - Summary Brief History from admission: 62 yo female with prior aortic reconstruction for occlusive disease who presents for extra-anatomic bypass for B LE rest pain. No tissue loss, no motor dysfunction. Notes that legs hurt every night. Other than anxiety about surgery, has been feeling well. No changes in her health that would preclude OR. Procedure: R ax-fem-fem, B groin reconstruction, R fem-bK pop Significant Findings: GENERAL: Afebrile/A&OX3/NAD SKIN: Warm and dry/Incision to chest (anterior)/R chest (Lateral)/R LE intact w/ o R/D/S Prevena wound vacs to B groins intact w/o swelling or hematoma NECK: Supple, trachea midline. No JVD or lymphadenopathy. CARDIOVASCULAR: Regular rate and rhythm without murmurs, gallops, or rubs. RESPIRATORY: Breath sounds equal bilaterally. No accessory muscle use. GASTROINTESTINAL: Abdomen soft, non-tender, nondistended. MUSCULOSKELETAL: No cyanosis, R LE with mild 1+ edema/ B LE warm w/ motor intact Hospital Course: 62 yo female with prior aortic reconstruction for occlusive disease who presents for extra-anatomic bypass for B LE rest pain. No tissue loss, no motor dysfunction. Noted that legs hurt every night. Pt underwent a R ax-fem-fem, B groin reconstruction, R fem-bK pop and has done well post operatively Pt d/c to home w/ out pt Physical therapy for continued rehabilitative services PDMP was queried. Given Rx for 3 days of narcotics for acute post-operative pain. Pt will RTC in 2W w/ a surveillance ONEAL - Discharge Instructions Any questions or concerns: Call [facility] at [facility] [phone] Discharge Plan - Discharge Disposition Patient Disposition: Discharge Home - Discharge Condition Condition: Good - Discharge Order Discharge Orders: Discharge Order (Routine); Ordered 03/31/18 Ordered By: Keo Lopez - Physicians Team Primary Care Provider: Keo Kim Attending Provider: Matthias Robbins Other Providers: Alanna Jett DO ; Leeroy Aranda MD ; [employer] Insurance - Rxs /Orders / Referrals /Forms Prescriptions: New aspirin 81 mg Tablet,Chewable 81 mg PO DAILY RF: 0 hydrocodone-acetaminophen [[place]] 5-325 mg Tablet 1 tab PO Q4H PRN (Reason: Pain) Qty: 20 RF: 0 Continue alprazolam 0.25 mg Tablet 0.25 mg PO TID PRN (Reason: Anxiety) cholecalciferol (vitamin D3) [Vitamin D3] 1,000 unit Capsule 1,000 unit PO DAILY duloxetine 30 mg Capsule,Delayed Release(Dr/Ec) 30 mg PO DAILY gabapentin 300 mg Capsule 300 mg PO BID Lacto.acidophilus-Bif.animalis [Daily Probiotic] 2.5 billion cell Capsule 1 cap PO DAILY metoprolol tartrate 25 mg Tablet 25 mg PO BID prasugrel [Effient] 10 mg Tablet 10 mg PO DAILY Referrals: Matthias Robbins MD [Physician] - See Instructions (F/U in 2W w/ a surveillance ONEAL ONEAL exam: 04/15/18 at 11:00 Your F/U appointment is scheduled on 04/19/18 at 09:30) Keo Kim DO [Primary Care Provider] - See Instructions - Discharge Instructions Patient Printed Instructions: Heart Healthy Diet (DC), Femoropopliteal Bypass ( DC), Acute Wound Care (DC), Exercise Safety (ED) - Post Discharge Care Plan Care Plan Goals: Discharge Care Plan Goals After Vascular Surgery Contact: Please call [phone] if you have any problems or have questions regarding your hospitalization. Directions to Meet Your Goals: 1. Diet: * You may resume a regular diet as you were eating at home before your admission. 2. Activity: * Increase your activity level gradually. * Keep surgical extremities elevated when at rest. This will help limit the swelling, bruising and discomfort normally present after surgery. * Walking is a good form of light exercise. Go for a walk at least 3 times per day. * No heavy lifting (lifting over 10 pounds) for at least 4 weeks from surgery. * Check with your surgeon to ensure when you are cleared for heavy lifting and full-intensity exercising. * Your strength will gradually improve. * No driving or operating motorized vehicles while on prescription pain medications. * No swimming until wounds fully healed. * Return to work when cleared by MD/PA/[employer]. 3. Bathing: Shower daily. * Gently let soap and water run over your incision and pat dry. Do not scrub the incision/wound. * Don't soak in a bath or submerge your incision in water until your incision is healed and evaluated by your physician at follow-up (usually two weeks). 4. Wound Care: INCISION SITE CARE INSTRUCTIONS: * You may leave your incision open to air. * Keep your incision clean and dry, unless showering. See above. * Moisture near the incision will cause the wound to open. * No lotions, creams, ointments, or powders on incisions until they are well- healed. * If you have glue over the incision(s), allow it to fall off naturally in 1-3 weeks * If present, miladis/sutures will be removed 2-3 weeks after surgery during your follow-up clinic visit. * If present, change dressing/bandage when soaked/soiled as needed. * Observe wound daily, checking for signs and symptoms of infection including: foul odor, drainage from the incision, increased redness, increased pain at incision, or increased swelling. 5. Pain Control: Expect post-operative pain for 1-4 weeks after surgery. Your pain will improve gradually. * You may have been provided with a prescription for pain medication. Please take as directed, and be aware of side effects such as drowsiness, constipation and mild stomach discomfort. Pain pills on an empty stomach can cause nausea , so eat a small amount of food, such as crackers, when taking these pills. * Take vvpo-teu-ypdooxl stool softeners (Colace or Senna) with your prescribed pain medication. * Acetaminophen (500mg every 6 hours) or Ibuprofen (400mg every 6 hours) may be used in conjunction with narcotics to relieve pain. DO NOT take more than 4 grams (4000mg) of Tylenol in one day, as this can harm your liver. DO NOT take ibuprofen IF: you have an allergy to non-steroidal anti-inflammatory medications, you are taking Coumadin, you have been told you have kidney problems, or you have a history of gastrointestinal bleeding or ulcers. DO NOT take more than 3.2 grams (3200mg) of ibuprofen in one day. * You may also find relief from using heat packs or pads or ice packs. 6. Bowel Regimen for Constipation: * People who undergo surgery are likely to develop post-operative constipation. Exposure to narcotics and changes in diet, fluid intake, and physical activity are known contributors to constipation. We recommend routine stool softeners and/ or laxatives after surgery for most patients. Start by taking one medication. You can increase as directed to relieve constipation. Stop taking these medications if you develop diarrhea. These medications are available over-the- counter and do not require a prescription: * Colace is a stool softener. We recommend starting at 100mg orally twice per day as needed for soft stools and increase to a maximum of 200mg twice daily as needed. * Senna is a laxative that works by keeping water in the intestine to help stool move along the intestinal tract. Take 1 tablet daily as needed for soft stool and increase to a maximum of 2 tablets twice daily as needed. Take Senna with two full glasses of water each time. * Miralax, Dulcolax and Milk of Magnesia are other qbpd-smg-htcejrr laxatives that may be used as needed for post-operative constipation. * Drink 6-8 glasses of water per day. * Consume 15-30g of fiber per day: * Metamucil powder, 1-2 tablespoons 1-2 times/day OR Benefiber powder, 2 tablespoons 4 times/day. * Avoid straining. 7. Follow-Up: Do Not miss your follow-up appointment. Keep up with all your appointments and yearly check ups If you have any of the following symptoms please call [phone] immediately: Excessive swelling of the affected extremity Sudden onset of severe or unusual pain in the affected extremity Pain that gets worse or is not relieved by medication Warmth, redness, or swelling in the skin around the wound Foul drainage from incision Extensive bruising or discoloration Wound that opens up or pulls apart Fever above 101.5F or shaking chills Nausea or vomiting Severe diarrhea or severe constipation Dizziness or fainting Chest pain, shortness of breath, or increased work of breathing Weight gain >10 lbs over 3-4 days Inability to urinate for more than 6 hours Cloudy or foul smelling urine Urge to urinate more often than usual Symptoms to Report to Your Doctor: Temperature 101F or higher Pain uncontrolled by medication Drainage or foul odor from incision Extensive bruising or discoloration Chest pain Shortness of breath Nausea, vomiting or dizziness Call 911: Call 911 right away if you have: Sudden onset of chest pain that is not relieved by medications Shortness of breath
[2018-04-01] MEDS: Enoxaparin Inj 30 MG/0.3 ML Syringe SQ SCH (12:05)
[2018-04-02] MEDS: Metoprolol Tartrate 25 MG Tablet PO SCH (09:35)
[2018-04-02] MEDS: Famotidine 20 MG Tablet PO SCH (09:35)
[2018-04-02] MEDS: Lactobacillus Acidophilus/L. Spores Tablet PO SCH (09:35)
[2018-04-02] MEDS: Gabapentin 300 MG Capsule PO SCH (09:35)
[2018-04-02] MEDS: Senna/Docusate Sodium 8.6/50 MG Tablet PO SCH (09:35)
[2018-04-02 09:58] VITALS: PULSE 60
[2018-04-02 10:01] VITALS: BP 113/52; RESP 17; TEMP 98.7; O2SAT 100
--- NOTE | 2018-04-02 10:33 | P.PNVS ---
Subjective Post Op Day #: 7 Procedure: R ax-fem-fem, B groin reconstruction, R fem-bK pop Subjective/Hospital Course: Pt well this am Pt w/o complaints this am Incisions intact B LE warm w/ motor intact Pt denied claudication or rest pain Objective Vital Signs / I&O: Vital Signs 04/01/18 11:00 04/01/18 12:00 04/01/18 13:00 Temperature 98.2 F Pulse Rate 60 60 64 Respiratory Rate 16 Blood Pressure 106/50 L Pulse Oximetry 97 04/01/18 14:00 04/01/18 15:00 04/01/18 16:00 Temperature 97.8 F Pulse Rate 65 58 L 58 L Respiratory Rate 16 Blood Pressure 110/61 Pulse Oximetry 99 04/01/18 17:00 04/01/18 17:53 04/01/18 19:00 Temperature 98.7 F Pulse Rate 63 63 68 Respiratory Rate 16 Blood Pressure 119/56 L Pulse Oximetry 96 04/01/18 20:00 04/01/18 21:00 04/01/18 22:00 Temperature Pulse Rate 68 62 66 Respiratory Rate Blood Pressure Pulse Oximetry 04/01/18 23:00 04/02/18 00:00 04/02/18 01:00 Temperature 98.8 F Pulse Rate 60 60 62 Respiratory Rate 16 Blood Pressure 132/61 Pulse Oximetry 98 04/02/18 02:00 04/02/18 03:00 04/02/18 04:00 Temperature 98.6 F Pulse Rate 58 L 60 57 L Respiratory Rate 16 Blood Pressure 118/56 L Pulse Oximetry 97 04/02/18 05:00 04/02/18 06:00 04/02/18 06:45 Temperature Pulse Rate 59 L 56 L Respiratory Rate 16 Blood Pressure Pulse Oximetry 04/02/18 07:00 Temperature 98.7 F Pulse Rate 60 Respiratory Rate 17 Blood Pressure 113/52 L Pulse Oximetry 100 Intake & Output 04/01/18 04/02/18 04/02/18 18:59 06:59 18:59 Intake Total 480 / 480 240 / 240 Output Total 600 / 600 800 / 800 Balance -120 / -120 -560 / -560 Weight 61 kg Intake: Oral 480 / 480 240 / 240 Output: Urine 600 / 600 800 / 800 Other: # Voids 3 Date of Last Bowel Movement 04/01/18 03/31/18 # Bowel Movements 1 Exam: GENERAL: Afebrile/A&OX3/NAD SKIN: Warm and dry/Incision to chest (anterior)/R chest (Lateral)/R LE intact w/ o R/D/S B groin incisions intact w/o erythema, swelling or drainage NECK: Supple, trachea midline. No JVD or lymphadenopathy. CARDIOVASCULAR: Regular rate and rhythm without murmurs, gallops, or rubs. RESPIRATORY: Breath sounds equal bilaterally. No accessory muscle use. GASTROINTESTINAL: Abdomen soft, non-tender, nondistended. MUSCULOSKELETAL: No cyanosis, R LE with mild 1+ edema/ B LE warm w/ motor intact Assessment and Plan - Plan POD#7 s/p R ax-fem-fem, B groin reconstruction, R fem-BK pop feet warm and resolved rest pain Plan Pt cleared for d/c (home w/ out pt physical therapy) Discussed and reviewed post operative care and management Questions answered Arranged out pt f/u Jeanette Neves NP [facility] [phone] Discharge Planning: Today to SNF
== END 2018-04-02 15:55 | disposition home or self-care (01) | DRG 253 ==
LOC: HSDI 06:39 → HCVI 13:51 → HCPC 03-29 07:46
PROVIDERS: ADMIT Surgery; ATTEND Surgery
CPT/HCPCS: 36430; 80048; 82040; 85027; 86850; 86900; 86901; 86923; 94150; 97110; 97116; 97162; 97167; 97530; 97535; C1768; J1100; J1644; J1650; J2250; J2270; J2370; J2405; J2704; J2710; J2720; J3010; J3370; J7040; J7050; J7120; P9016; Q4145